=== PATIENT | male | born 1960 | race Caucasian/White ===

== ENCOUNTER 2024-02-17 08:56 | Emergency (ER) | payer BC, MEDICARE ==
[~2024-02-17] VITALS: Ht 170.2 cm; Wt 89.3 kg
[2024-02-17] MEDS ORDERED: ENAL5TAB36 PO (09:13)
[2024-02-17] MEDS ORDERED: ROSU10TA61 PO (09:13)
[2024-02-17 09:40] LABS: HEMATOCRIT 48.5 % (42.0-52.0); HEMOGLOBIN 16.7 g/dl (13.5-17.5); MEAN CORPUSCULAR HEMOGLOBIN 31.2 pg (27.0-33.0); MEAN CORPUSCULAR HGB CONC 34.4 g/dl (32.0-36.5); MEAN CORPUSCULAR VOLUME 90.5 fl (80.0-96.0); PLATELET COUNT, AUTOMATED 280 10^3/uL (150-450); RED BLOOD COUNT 5.36 10^6/uL (4.30-6.10); WHITE BLOOD COUNT 22.1 10^3/uL (4.0-10.0)
[2024-02-17 10:04] LABS: BLOOD UREA NITROGEN 12 MG/DL (9-23); CALCIUM LEVEL 10.3 MG/DL (8.3-10.6); CARBON DIOXIDE LEVEL 30 MMOL/L (20-31); CHLORIDE LEVEL 104 MMOL/L (98-107); CREATININE FOR GFR 1.09 MG/DL (0.70-1.30); GLOMERULAR FILTRATION RATE > 60.0 (>49); GLUCOSE, FASTING 155 MG/DL (74-106); SODIUM LEVEL 137 MMOL/L (136-145)
[2024-02-17] MEDS: NS 500 ML IV ONE (12:09)
[2024-02-17] MEDS: CIPROFLOXACIN 400 MG in IV 1 EA IV ONE (12:09)
[2024-02-17] MEDS ORDERED: FLOM0.4C39 PO (13:45)
[2024-02-17] MEDS ORDERED: PYRI1TAB5 PO (13:45)
[2024-02-17] MEDS ORDERED: CIPR-249 PO (13:45)
[2024-02-17 14:02] VITALS: BP 138/72; TEMP 97.4; O2SAT 98
== END 2024-02-17 14:16 | disposition home or self-care (01) ==
LOC: M ED 08:56
DX: N39.0 Urinary tract infection, site not specified (principal); N40.0 Benign prostatic hyperplasia without lower urinary tract symptoms; I10 Essential (primary) hypertension; E78.5 Hyperlipidemia, unspecified; Z88.2 Allergy status to sulfonamides; Z79.2 Long term (current) use of antibiotics; Z79.899 Other long term (current) drug therapy
CPT/HCPCS: 76775; 76857; 80048; 81001; 83605; 85027; 87040; 87088; 87186; 96365; 99284; J0744